=== PATIENT | male | born 1955 | race Caucasian/White ===

== ENCOUNTER 2019-04-28 11:12 | Outpatient (CLI) | payer OTHER, SELFPAY ==
[2019-04-28 08:30] LABS: NT Pro B Type Natriuretic Pept 122 PG/ML (5-100)
[2019-04-28 14:14] LABS: Prostate Specific Antigen 0.4 ng/mL (< OR = 4.0)
== END 2019-04-28 11:13 | disposition home or self-care (01) ==
PROVIDERS: PCP Family Medicine; Visit Provider Family Medicine
DX: Z12.5 Encounter for screening for malignant neoplasm of prostate (principal)
CPT/HCPCS: 36415; 83880; 84153

== ENCOUNTER 2020-05-23 15:47 | Outpatient (CLI) | payer BC, SELFPAY ==
--- NOTE | ~2020-05-23 | US_ITS ---
US venous doppler LE RT DATE: 05/23/2020 16:31 INDICATION: Right leg swelling TECHNIQUE: Real-time and color flow imaging and Doppler analysis COMPARISON: None FINDINGS: The right greater saphenous vein is patent. There is spontaneous and phasic flow and normal augmentation and color flow signal of the right common femoral, popliteal and peroneal veins. There is partial compression of the proximal and mid right femoral artery and no compression of the p roximal tibial vein. IMPRESSION: Deep venous thrombosis of right femoral and proximal posterior tibial veins I attempted to contact [phone] with the report and was directed by voicemail to the on-call phys ician at [phone]. However, to fully close to this phone number and reached a recording the indic ated indicated this phone number was no longer in service. I called the histotechnologist supervisor who performed the procedure at [facility] on 07/21/2020 at 1638 hours and suggested the patient should be sent to the emergency room if a referring physician o r physician family medicine physician assistant could not be contacted. Reviewed, dictated and finalized at [facility]. Reviewed, dictated and finalized at location B. CONTROL SUPERVISOR IMPRESSION: Deep venous thrombosis of right femoral and proximal posterior tibi al veins I attempted to contact [phone] with the report and was directed by voicema il to the on-call physician at [phone]. However, to fully close to this ph one number and reached a recording the indicated indicated this phone number wa s no longer in service. I called the histotechnologist supervisor who performed the procedure at [facility] on 07/21/2020 at 1638 hours and suggested the patient should be sent to [facility] emergency room if a referring physician or physician family medicine physician assistant could not be contacted.
== END 2020-05-23 15:48 | disposition home or self-care (01) ==
LOC: ANHIMG 15:49
PROVIDERS: PCP Physician Assistant; Visit Provider Physician Assistant
DX: M79.89 Other specified soft tissue disorders (principal); I82.411 Acute embolism and thrombosis of right femoral vein; I82.441 Acute embolism and thrombosis of right tibial vein
CPT/HCPCS: 93971

== ENCOUNTER 2020-06-26 14:04 | Observation (INO) | payer BC, SELFPAY ==
[2020-06-26] VITALS (29 sets, daily range): BP systolic 119–156; BP diastolic 48–79; PULSE 66–96; RESP 12–24; TEMP 35.9–36.7; O2SAT 86–100; BMI 24.1
--- NOTE | ~2020-06-26 | XR_ITS ---
XR chest 2V DATE: 06/26/2020 16:08 INDICATION: Dyspnea on exertion. Hypertension. Elevated troponin. TECHNIQUE: PA and lateral views COMPARISON: 09/22/2005 portable AP chest FINDINGS: Normal heart size. No hilar or mediastinal enlargement. No pulmonary infiltrate or consolid ation, pleural effusion or pulmonary vascular congestion or pneumothorax is detected. There is degene rative spurring of the thoracic spine. IMPRESSION: No active cardiopulmonary disease Reviewed, dictated and finalized at location B.
[2020-06-26 14:23] LABS: Basophils Absolute Auto 0.1 K/mm3 (0.0-0.1); Basophils Percent Auto 1.1 % (0.2-1.2); Eosinophils Absolute Auto 0.3 K/mm3 (0-0.3); Eosinophils Percent Auto 4.6 % (0-4.4); Hematocrit 22.5 % (42.0-52.0); Immature Granulocyte Absolute 0.02 K/mm3 (0.00-0.031); Immature Granulocyte Percent A 0.4 % (0-0.5); Lymphocytes Absolute Auto 0.75 K/mm3 (0.9-3.2); Lymphocytes Percent Auto 13.4 % (18.3-44.2); Mean Corpuscular HGB Conc 26.7 g/dl (32-36); Mean Corpuscular Hemoglobin 18.9 pg (26-34); Mean Platelet Volume 10.6 fl (7.4-10.4); Monocytes Absolute Auto 0.5 K/mm3 (0.1-0.6); Monocytes Percent Auto 8.2 % (2.6-8.5); Neutrophils Absolute Auto 4.1 K/mm3 (1.3-6.7); Neutrophils Percent Auto 72.3 % (45.5-73.1); Platelet Count Result 250 k/mm3 (150-375); Red Blood Count 3.17 M/mm3 (4.6-6.20); Red Cell Distribution Width 17.5 % (11.5-14.5); White Blood Count 5.6 K/mm3 (4.5-10.0)
[2020-06-26 14:29] LABS: Ovalocytes 2+ (NORMAL); Tear Drop Cells 2+ (NORMAL)
[2020-06-26 14:30] LABS: Hypochromasia 2+ (NORMAL); Platelet Estimate Adequate (Adequate); Polychromasia 1+ (NORMAL)
[2020-06-26 14:33] LABS: INR 1.2; Prothrombin Time 16.2 Seconds (11.1-14.7)
[2020-06-26 14:34] LABS: Partial Thromboplastin Time 29.9 SECONDS (22.3-36.8)
[2020-06-26 14:36] LABS: Alanine Aminotransferase 19 U/L (4-50); Albumin Level 4.1 g/dL (3.5-5.1); Alkaline Phosphatase 87 U/L (38-126); Anion Gap 8 mmol/L (8-16); Aspartate Amino Transferase 31 U/L (17-59); Bilirubin,Total 0.4 mg/dL (0.2-1.3); Blood Urea Nitrogen 23 mg/dL (9-20); Calcium 9.1 mg/dL (8.4-10.2); Carbon Dioxide 23 mmol/L (22-30); Chloride 105 mmol/L (98-107); Estimated CRCL calculation 70 ml/min; Estimated Glomerular Filt Rate > 60; Glucose 176 mg/dL (75-110); Potassium 4.2 mmol/L (3.4-5.0); Sodium 136 mmol/L (137-145)
[2020-06-26 14:52] LABS: Troponin I 0.063 ng/mL (0.000-0.034)
--- NOTE | 2020-06-26 15:11 | ED.RECABL ---
HPI - Recheck/Abnormal Lab/Rx General Chief Complaint: Recheck/Abnormal Lab/Rx Stated Complaint: low hemoglobin Time Seen by Provider: 06/26/20 15:10 Source: patient Mode of arrival: ambulatory Limitations: no limitations History of Present Illness HPI narrative: Patient is a 64-year-old male with a history of type 2 diabetes, recent cataract surgery, subsequent DVT taking Xarelto, who presents for evaluation of low hemoglobin level is found on outpatient laboratory testing. Patient states that he was diagnosed with a DVT at the end of May started Xarelto and there was noted to have a hemoglobin of 6.1 on outpatient lab testing. Today, patient is endorsing some lightheadedness with standing. No syncope. No palpitations. No fever or chills. He denies any dark or tarry stools. No chest pain. Patient denies any current shortness of breath. Related Data Home Medications Medication Instructions Recorded Confirmed dorzolamide-timolol 1 drp OPHTHALMIC (EYE) BID 02/08/19 05/23/20 melatonin mg 02/08/19 05/23/20 potassium chloride 02/08/19 05/23/20 dextroamphetamine-amphetamine ER 20 mg PO QAM 04/08/19 05/23/20 20 mg 24hr capsule,extend release empagliflozin 25 mg tablet 25 mg PO DAILY 04/08/19 05/23/20 fluticasone propionate 50 1 spray NASAL DAILY PRN 04/08/19 05/23/20 mcg/actuation nasal spray,suspension metoprolol succinate 25 mg 50 mg PO DAILY tablet 04/08/19 05/23/20 tablet,extended release 24 hr ascorbic acid (vitamin C) 500 mg mg PO 05/10/20 05/23/20 capsule diphenhydramine HCl 25 mg capsule 25 mg PO TID PRN 05/10/20 05/23/20 finasteride 5 mg tablet 5 mg PO DAILY 05/10/20 05/23/20 metformin 500 mg tablet,extended 1,000 mg PO DAILY tablet 05/10/20 05/23/20 release 24 hr multivitamin 1 tablet PO DAILY 05/10/20 05/23/20 omega-3 acid ethyl esters 1 gram 1 cap PO DAILY 05/10/20 05/23/20 capsule turmeric 400 mg capsule mg PO 05/10/20 05/23/20 Allergies Allergy/AdvReac Type Severity Reaction Status Date / Time gluten Allergy Unknown unk Verified 05/23/20 14:52 Review of Systems Review of Systems: Narrative: CONSTITUTIONAL: Denies fever, chills, or sweats. EYES: Denies visual changes, reports improved left eye pain since cataract surgery and using his drops ENT: Denies rhinorrhea, congestion, sore throat, or otalgia. CARDIOVASCULAR: Denies chest pain, palpitations, or edema. RESPIRATORY: Denies cough or dyspnea. GASTROINTESTINAL: Denies abdominal pain, nausea, vomiting, or diarrhea. Denies dark or tarry stools. GENITOURINARY: Denies dysuria or hematuria. SKIN: Denies rash or itching. MUSCULOSKELETAL: Denies back pain, joint pain, or myalgia. NEUROLOGIC: Denies headache, numbness, or weakness. Reports mild lightheadedness with standing. [facility] Past Medical History Medical History (Updated 06/26/20 @ 15:34 by Rachael Mederos MD) ADHD BPH associated with nocturia CAD (coronary artery disease) Glaucoma Hyperlipidemia Hypertension Itchy skin Osteoarthritis Right leg DVT Right leg swelling Type 2 diabetes mellitus Surgical History Surgical History (Updated 06/26/20 @ 15:34 by Rachael Mederos MD) History of cataract surgery History of heart artery stent Family History Family History Other Family history of coronary artery disease Social History Social History Smoking status: Former smoker (Quit 1978) Second hand tobacco smoke exposure: No Smoking end date: 04/06/79 Alcohol intake: current Substance use: never Substance use type: does not use and prescription drug Other substance usage details: adderall Gender identity (if verbalized by the patient): Male Exam Narrative: Exam Narrative: GENERAL: Awake, alert, conversant HEAD: Normocephalic, atraumatic. EYES: PERRLA and EOMI. ENT: Nares clear, no rhinorrhea or epistaxis. Mucous membranes moist.
--- NOTE | 2020-06-26 15:35 | ECG_ITS ---
Measurements Intervals [place] Rate: 68 P: 24 AL: 217 QRS: 14 QRSD: 105 T: 38 QT: 405 QTc: 432 Interpretive Statements SINUS RHYTHM WITH FIRST DEGREE AV BLOCK ABNORMAL ECG Electronically Signed On 06-26-2020 16:31:32 CDT by Jitendra Mitchell D.O.
[2020-06-26 16:41] LABS: Transferrin 396 mg/dL (206-381)
[2020-06-26] MEDS: SODIUM CHLORIDE 0.9% IV 250 ML 30 ML IV CONT (17:00)
[2020-06-26 17:33] LABS: Iron 17 ug/dL (49-181)
[2020-06-26 17:43] LABS: Folic Acid > 20.0 ng/mL (2.76->20); Percent Iron Saturation 3 % (20-50)
[2020-06-26 18:10] LABS: Ferritin 3.86 ng/mL (11.1-264)
[2020-06-26 19:19] LABS: Troponin I 0.088 ng/mL (0.000-0.034)
--- NOTE | 2020-06-26 21:19 | ADMGEN ---
This patient, Lamin Peña, was admitted to IMU Room 232-01 at 2105. Patient/family oriented to hospital policies and general routines including ID bracelet, bed and alarms, visiting hours, pain management, procedures, bathroom and other care routines, personal items, smoking policy, room service/diet, and visiting hours. Information on how to activate the Rapid Response Team has been discussed. Patient/Family are encouraged to report perceived risks to care and to ask questions if they do not understand what they are told or what they should do.
[2020-06-26 21:20] LABS: Hematocrit 25.2 % (42.0-52.0)
[2020-06-26 21:30] LABS: Hemoglobin 6.8 g/dL (14.0-18.0)
[2020-06-26 21:49] LABS: Troponin I 0.098 ng/mL (0.000-0.034)
--- NOTE | 2020-06-26 22:20 | PM.IMHP ---
H&P: HPI History of Present Illness Date/Time: 06/26/20 22:20 Chief Complaint: Low blood counts. Narrative: This is a pleasant 64-year-old diabetic male with known history of recurrent right lower extremity DVT currently on Xarelto therapy, hypertension, coronary artery disease status post stent to RCA, and glaucoma who presented to the hospital after he was found to have a low hemoglobin on routine outpatient lab testing. The patient has been on Xarelto therapy since the end of May after he was found to have a recurrent right lower extremity DVT. He has noticed he has had increased exertional dyspnea and increased fatigue over the past 2 weeks. He denies any dizziness, chest pain, or passing out. He also denies any nausea, vomiting, black tarry stools, or over rectal bleeding. He denies any past history of GI bleeding. Patient was evaluated emergency room today and found to have a low H&H of 6.0/22.5. Patient was transfused packed red blood cells and gastroenterology was consulted by ER provider. On my encounter with the patient tonight he has no complaints and is resting comfortably in bed. Review of Systems Review of Systems: All systems reviewed & are unremarkable except as noted in HPI and below PMFSH Past Medical History Medical History (Updated 06/26/20 @ 22:31 by Mikey Auguste MD) ADHD BPH associated with nocturia CAD (coronary artery disease) Glaucoma Hyperlipidemia Hypertension Itchy skin Osteoarthritis Right leg DVT Right leg swelling Type 2 diabetes mellitus Surgical History Surgical History History of cataract surgery History of heart artery stent Family History Family History Other Family history of coronary artery disease Social History Social History Smoking status: Former smoker Second hand tobacco smoke exposure: No Alcohol intake: never Substance use: never Substance use type: does not use Other substance usage details: adderall Gender identity (if verbalized by the patient): Male Spiritual care concerns: No Meds Home Medications and Allergies Home Medications Medication Instructions Recorded Confirmed Type dorzolamide-timolol 1 drp OPHTHALMIC (EYE) BID 02/08/19 06/26/20 History glimepiride 2 mg PO DAILY #30 tablet 02/08/19 06/26/20 Rx melatonin 5 mg PO HS 02/08/19 06/26/20 History dextroamphetamine-amphetamine ER 20 mg PO QAM 04/08/19 06/26/20 History 20 mg 24hr capsule,extend release fluticasone propionate 50 1 spray NASAL DAILY PRN 04/08/19 06/26/20 History mcg/actuation nasal spray,suspension atorvastatin 20 mg tablet 20 mg PO DAILY #90 tablet 05/10/20 06/26/20 Rx diphenhydramine HCl 25 mg capsule 25 mg PO TID PRN 05/10/20 06/26/20 History finasteride 5 mg tablet 5 mg PO DAILY 05/10/20 06/26/20 History irbesartan 150 mg tablet 150 mg PO DAILY #90 tablet 05/10/20 06/26/20 Rx metformin 500 mg tablet,extended 1,000 mg PO DAILY tablet 05/10/20 06/26/20 History release 24 hr multivitamin 1 tablet PO DAILY 05/10/20 06/26/20 History omega-3 acid ethyl esters 1 gram 1 cap PO DAILY 05/10/20 06/26/20 History capsule turmeric 400 mg capsule 400 mg PO DAILY 05/10/20 06/26/20 History sildenafil 100 mg tablet 100 mg PO DAILY PRN #20 tablet 05/14/20 06/26/20 Rx tizanidine 2 mg tablet 2 mg PO TID PRN #270 tablet 05/14/20 06/26/20 Rx clindamycin phosphate 2 applic TOPICAL BID 06/26/20 06/26/20 History gabapentin 300 mg PO TID 06/26/20 06/26/20 History levocetirizine 5 mg PO DAILY 06/26/20 06/26/20 History rivaroxaban [Xarelto] 20 mg PO DAILY 06/26/20 06/26/20 History Allergies Allergy/AdvReac Type Severity Reaction Status Date / Time gluten Allergy Unknown unk Verified 05/23/20 14:52 Vital Signs Vital Signs - 24 hr 06/26/20 14:08 06/26/20 15:43 06/26/20 15:45 Temperature 35.
[2020-06-26] MEDS: TUBING, BLOOD PLUM PUMP TUBING 1 EACH XX (23:20)
[2020-06-27] VITALS (14 sets, daily range): BP systolic 115–126; BP diastolic 50–73; PULSE 62–98; RESP 16–20; TEMP 35.9–37.3; O2SAT 96–100
[2020-06-27 04:33] LABS: Basophils Absolute Auto 0.1 K/mm3 (0.0-0.1); Basophils Percent Auto 1.4 % (0.2-1.2); Eosinophils Absolute Auto 0.3 K/mm3 (0-0.3); Eosinophils Percent Auto 5.6 % (0-4.4); Hematocrit 25.3 % (42.0-52.0); Hemoglobin 7.1 g/dL (14.0-18.0); Immature Granulocyte Absolute 0.03 K/mm3 (0.00-0.031); Immature Granulocyte Percent A 0.5 % (0-0.5); Lymphocytes Absolute Auto 0.83 K/mm3 (0.9-3.2); Mean Corpuscular HGB Conc 28.1 g/dl (32-36); Mean Corpuscular Hemoglobin 20.1 pg (26-34); Mean Corpuscular Volume 71.7 fl (80-100); Mean Platelet Volume 9.7 fl (7.4-10.4); Monocytes Absolute Auto 0.5 K/mm3 (0.1-0.6); Monocytes Percent Auto 9.2 % (2.6-8.5); Neutrophils Absolute Auto 3.8 K/mm3 (1.3-6.7); Neutrophils Percent Auto 68.3 % (45.5-73.1); Platelet Count Result 190 k/mm3 (150-375); Red Blood Count 3.53 M/mm3 (4.6-6.20); Red Cell Distribution Width 18.3 % (11.5-14.5); White Blood Count 5.5 K/mm3 (4.5-10.0)
[2020-06-27 04:46] LABS: Anion Gap 5 mmol/L (8-16); Blood Urea Nitrogen 19 mg/dL (9-20); Calcium 8.7 mg/dL (8.4-10.2); Carbon Dioxide 26 mmol/L (22-30); Chloride 109 mmol/L (98-107); Estimated CRCL calculation 78 ml/min; Estimated Glomerular Filt Rate > 60; Glucose 88 mg/dL (75-110); Sodium 140 mmol/L (137-145)
[2020-06-27 05:01] LABS: Large Platelets Present; Platelet Estimate Adequate (Adequate)
[2020-06-27 05:02] LABS: Hypochromasia 1+ (NORMAL); Ovalocytes 2+ (NORMAL); Tear Drop Cells 1+ (NORMAL); Troponin I 0.082 ng/mL (0.000-0.034)
[2020-06-27 05:03] LABS: Polychromasia 1+ (NORMAL)
[2020-06-27 08:51] LABS: Glucose Point of Care 113 (65-105)
[2020-06-27 08:58] LABS: Hematocrit 26.4 % (42.0-52.0); Hemoglobin 7.3 g/dL (14.0-18.0)
[2020-06-27 10:56] LABS: Glucose Point of Care 107 (65-105)
[2020-06-27] MEDS: ATORVASTATIN 20 MG TABLET PO (11:28)
[2020-06-27] MEDS: IRBESARTAN 150 MG TABLET PO (11:29)
[2020-06-27] MEDS: GABAPENTIN 300 MG CAPSULE PO ×3 (11:29→17:14)
[2020-06-27] MEDS: FINASTERIDE 5 MG TABLET PO (11:29)
[2020-06-27] MEDS: LORATADINE 10 MG TABLET 5 MG PO (11:29)
[2020-06-27 13:01] LABS: IFOB Positive Control Positive; Immunochemical Fecal Occult Bl Positive (N)
[2020-06-27 13:05] LABS: Glucose Point of Care 219 (65-105)
--- NOTE | 2020-06-27 13:36 | PM.IMPN ---
Progress Note: A&P Assessment and Plan (1) Symptomatic anemia: Code(s): D64.9 - Anemia, unspecified Status: Acute Assessment and Plan: Patient has been admitted to IMU. Gastroenterology has been consulted. Continue GI recommendations. (2) Elevated troponin: Code(s): R77.8 - Other specified abnormalities of plasma proteins Status: Acute Assessment and Plan: Rule out ACS versus troponin leak from cardiac strain. (3) Hyperlipidemia: Qualifiers: Hyperlipidemia type: mixed hyperlipidemia Qualified Code(s): E78.2 - Mixed hyperlipidemia Code(s): E78.5 - Hyperlipidemia, unspecified Status: Chronic Assessment and Plan: Continue atorvastatin. (4) Type 2 diabetes mellitus: Qualifiers: Diabetes mellitus terminal system operator insulin use: without senior care use Diabetes mellitus complication status: with hyperglycemia Qualified Code(s): E11.65 - Type 2 diabetes mellitus with hyperglycemia Code(s): E11.9 - Type 2 diabetes mellitus without complications Status: Chronic Assessment and Plan: Accu-Cheks, sliding scale insulin coverage, hypoglycemia protocol. Resume oral hypoglycemic agents when the patient is eating again. 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 (6) CAD (coronary artery disease): Qualifiers: Coronary Disease-Associated Artery/Lesion type: [place] artery [place] vs. transplanted heart: [place] heart Associated angina: without angina Qualified Code(s): I25.10 - Atherosclerotic heart disease of [place] coronary artery without angina pectoris Code(s): I25.10 - Atherosclerotic heart disease of [place] coronary artery without angina pectoris Status: Chronic Assessment and Plan: Stable. (7) Right leg DVT: Qualifiers: Affected thrombotic vein of extremity: femoral Chronicity: acute Qualified Code(s): I82.411 - Acute embolism and thrombosis of right femoral vein Code(s): I82.401 - Acute embolism and thrombosis of unspecified deep veins of right lower extremity Status: Acute Assessment and Plan: Xarelto on hold (8) Hypertension: Qualifiers: Hypertension type: unspecified Qualified Code(s): I10 - Essential (primary) hypertension Code(s): I10 - Essential (primary) hypertension Status: Chronic Assessment and Plan: Stable. Subjective Date/time seen: 06/27/20 13:36 Interval history: 64-year-old diabetic male with known history of recurrent right lower extremity DVT currently on Xarelto therapy, hypertension, coronary artery disease status post stent to RCA, and glaucoma who presented to the hospital after he was found to have a low hemoglobin on routine outpatient lab testing. Pt states he has had chronic back itching. I will consult GI Review of Systems Review of Systems: All systems reviewed & are unremarkable except as noted in HPI and below Exam Const: General: cooperative and healthy appearing; No in distress Nutritional Appearance: overweight Orientation/consciousness: oriented to person HENMT: Head: normal to inspection Resp: Effort & Inspection: no respiratory distress Auscultation: no rhonchi and no wheezes Cardio: Rate: regular rate Rhythm: regular rhythm GI: Inspection: normal to inspection GI Palp: No abdominal tenderness, No Guarding due to palpation present (GI) and No Hepatomegaly present Auscultation: normal bowel sounds Neuro: General: oriented to person Objective Data Vital Signs Vital Signs: Vital Signs - 24 hr 06/26/20 14:08 06/26/20 15:43 06/26/20 15:45 Temperature
[2020-06-27] MEDS: INSULIN ASPART (*BKC) 100 UNITS/ML SUB-Q (14:17)
--- NOTE | 2020-06-27 16:09 | WPDGICN ---
Assessment and Plan Assessment and plan (1) Symptomatic anemia: Code(s): D64.9 - Anemia, unspecified Status: Acute Assessment and Plan: will proceed with egd and colonoscopy to check for source of blood loss in setting of xarelto that was started few weeks ago consider also small bowel bx to check for celiac disease (will get also serology) (2) Right leg DVT: Qualifiers: Affected thrombotic vein of extremity: femoral Chronicity: acute Qualified Code(s): I82.411 - Acute embolism and thrombosis of right femoral vein Code(s): I82.401 - Acute embolism and thrombosis of unspecified deep veins of right lower extremity Status: Acute Assessment and Plan: he was started on xarelto (3) CAD (coronary artery disease): Qualifiers: Coronary Disease-Associated Artery/Lesion type: [place] artery [place] vs. transplanted heart: [place] heart Associated angina: without angina Qualified Code(s): I25.10 - Atherosclerotic heart disease of [place] coronary artery without angina pectoris Code(s): I25.10 - Atherosclerotic heart disease of [place] coronary artery without angina pectoris Status: Chronic Assessment and Plan: history of stents few years ago (4) Chronic anticoagulation: Code(s): Z79.01 - [facility] (current) use of anticoagulants Status: Acute Assessment and Plan: xarelto on hold for now (5) Elevated troponin: Code(s): R77.8 - Other specified abnormalities of plasma proteins Status: Acute Assessment and Plan: mild elevated, denies chest pain, probably from symptomatic anemia by primary team (6) Hypertension: Qualifiers: Hypertension type: unspecified Qualified Code(s): I10 - Essential (primary) hypertension Code(s): I10 - Essential (primary) hypertension Status: Chronic (7) Type 2 diabetes mellitus: Qualifiers: Diabetes mellitus superintendent terminal insulin use: without superintendent terminal use Diabetes mellitus complication status: with hyperglycemia Qualified Code(s): E11.65 - Type 2 diabetes mellitus with hyperglycemia Code(s): E11.9 - Type 2 diabetes mellitus without complications Status: Chronic (8) Occult blood positive stool: Code(s): R19.5 - Other fecal abnormalities Status: Acute Assessment and Plan: stool was positive, scopes tomorrow GI Consult Note Consult date/time: 06/27/20 16:09 Reason for consult: symptomatic anemia HPI: Lamin Peña is a 64 year old male with history of recurrent right lower extremity DVT on 05/2020 on Xarelto since then (previous DVT 2013), hypertension, coronary artery disease status post stent to RCA, and recent glaucoma surgery who starting having pruritus in his back/arm for over a year, he has seen cartoonist special effects, electrotyper and finally reumathologist who finally ordered blood work work that showed microcytic anemia, hb 6 and advised to come to ER. He noted more fatigue than usual for last 2 weeks and increased exertional dyspnea. Also last 2 months with more dyspepsia, burning sensation epigastric and has been using pepcid with tums. He had egd and colonoscopy [place] [address] [place] because diarrhea (eventually diarrhea resolved but after avoiding gluten, never diagnosed with celiac though). No overt gib but last BM with hard stool and streak of blood. He received blood transfusion and feeling better. Mother had colon cancer and siblings with throat cancer. Review of Systems Constitutional: Constitutional: Denies chills and Reports fatigue Eyes: Eyes: Reports no additional eye complaints ENT: Reports system reviewed and no additional complaints, except as documented Cardiovascular: Cardiovascular: Reports no additional cardiovascular complaints Respiratory: Respiratory: Reports dyspnea on exertion Gastrointestinal: Gastrointestinal: Denies abdominal pain and Denies nausea Genitourinary: Genitourinary: Denies dysuria Muscul
[2020-06-27] MEDS: BISACODYL 5 MG TABLET EC 20 MG PO (17:12)
[2020-06-27] MEDS: polyethylene glycoL 3350 238 GM BOTTLE PO (17:13)
[2020-06-27 17:38] LABS: Glucose Point of Care 168 (65-105)
--- NOTE | 2020-06-27 18:27 | PC.NURSE ---
This patient, Lamin Peña, was transferred to [facility] on 06/27/20 at 1827. Personal belongings sent with patient. Report given to ALYSSA Owen. Appropriate documentation sent with patient.
--- NOTE | 2020-06-27 18:42 | PC.NURSE ---
This patient, Lamin Peña, was received from [IMU] on 06/27/20 at 1830. Patient/family oriented to unit policies and routines
[2020-06-27 21:32] LABS: Glucose Point of Care 159 (65-105)
[2020-06-28 00:23] LABS: Glucose Point of Care 118 (65-105)
[2020-06-28] MEDS: MAGNESIUM CITRATE 300 ML BTL PO (04:53)
[2020-06-28 05:55] VITALS: BP 123/71; PULSE 77; RESP 20; TEMP 36.3; O2SAT 99
[2020-06-28 06:27] LABS: Hematocrit 29.4 % (42.0-52.0); Hemoglobin 8.1 g/dL (14.0-18.0); Mean Corpuscular HGB Conc 27.6 g/dl (32-36); Mean Corpuscular Hemoglobin 19.4 pg (26-34); Mean Corpuscular Volume 70.5 fl (80-100); Mean Platelet Volume 10.3 fl (7.4-10.4); Platelet Count Result 242 k/mm3 (150-375); Red Blood Count 4.17 M/mm3 (4.6-6.20); Red Cell Distribution Width 18.6 % (11.5-14.5); White Blood Count 5.5 K/mm3 (4.5-10.0)
[2020-06-28 06:58] LABS: Alanine Aminotransferase 20 U/L (4-50); Albumin Level 4.3 g/dL (3.5-5.1); Alkaline Phosphatase 88 U/L (38-126); Anion Gap 10 mmol/L (8-16); Aspartate Amino Transferase 29 U/L (17-59); Bilirubin,Total 0.8 mg/dL (0.2-1.3); Blood Urea Nitrogen 16 mg/dL (9-20); Calcium 9.2 mg/dL (8.4-10.2); Carbon Dioxide 22 mmol/L (22-30); Chloride 107 mmol/L (98-107); Estimated CRCL calculation 70 ml/min; Estimated Glomerular Filt Rate > 60; Glucose 135 mg/dL (75-110); Potassium 3.9 mmol/L (3.4-5.0); Sodium 139 mmol/L (137-145)
[2020-06-28 07:06] LABS: Thyroid Stimulating Hormone 0.442 uIU/mL (0.465-4.680)
[2020-06-28 10:18] LABS: Glucose Point of Care 120 (65-105)
--- NOTE | 2020-06-28 11:06 | PC.NURSE ---
patient to GI lab per stretcher.
--- NOTE | 2020-06-28 11:06 | PC.NURSE ---
patient npo, did not get morning medications. plan to give medications upon return to the floor after procedure.
[2020-06-28 11:11] LABS: Glucose Point of Care 110 (65-105)
[2020-06-28] MEDS: LACTATED RINGERS 1,000 ML 150 ML IV CONT (11:20)
[2020-06-28 11:24] VITALS: BP 128/71; PULSE 65; RESP 16; TEMP 36.6; O2SAT 100
--- NOTE | 2020-06-28 12:06 | WPDANESEPPF ---
Anes - Initial Pre Proc Eval Procedure: Operation Date: 06/28/20 14:30 Proposed Procedures p Esophagogastroduodenoscopy - Frantz More MD Date/Time: 06/28/20 12:06 Surgeon: Madiha Britt MD Pre Op Diagnosis: Symptomatic anemia, elevated troponin Patient Data Age: 64 Gender: M Height: 6 ft Weight: 82.1 kg Last Vital Signs Temp 97.9 F 06/28/20 11:24 Pulse 65 06/28/20 11:24 Resp 16 06/28/20 11:24 BP 128/71 06/28/20 11:24 Pulse Ox 100 06/28/20 11:24 Allergies Allergy/AdvReac Type Severity Reaction Status Date / Time gluten Allergy Unknown unk Verified 06/28/20 11:21 Home Medications Medication Instructions Recorded Confirmed Type dorzolamide-timolol 1 drp OPHTHALMIC (EYE) BID 02/08/19 06/26/20 History glimepiride 2 mg PO DAILY #30 tablet 02/08/19 06/26/20 Rx melatonin 5 mg PO HS 02/08/19 06/26/20 History dextroamphetamine-amphetamine ER 20 mg PO QAM 04/08/19 06/26/20 History 20 mg 24hr capsule,extend release fluticasone propionate 50 1 spray NASAL DAILY PRN 04/08/19 06/26/20 History mcg/actuation nasal spray,suspension atorvastatin 20 mg tablet 20 mg PO DAILY #90 tablet 05/10/20 06/26/20 Rx diphenhydramine HCl 25 mg capsule 25 mg PO TID PRN 05/10/20 06/26/20 History finasteride 5 mg tablet 5 mg PO DAILY 05/10/20 06/26/20 History irbesartan 150 mg tablet 150 mg PO DAILY #90 tablet 05/10/20 06/26/20 Rx metformin 500 mg tablet,extended 1,000 mg PO DAILY tablet 05/10/20 06/26/20 History release 24 hr multivitamin 1 tablet PO DAILY 05/10/20 06/26/20 History omega-3 acid ethyl esters 1 gram 1 cap PO DAILY 05/10/20 06/26/20 History capsule turmeric 400 mg capsule 400 mg PO DAILY 05/10/20 06/26/20 History sildenafil 100 mg tablet 100 mg PO DAILY PRN #20 tablet 05/14/20 06/26/20 Rx tizanidine 2 mg tablet 2 mg PO TID PRN #270 tablet 05/14/20 06/26/20 Rx clindamycin phosphate 2 applic TOPICAL BID 06/26/20 06/26/20 History gabapentin 300 mg PO TID 06/26/20 06/26/20 History levocetirizine 5 mg PO DAILY 06/26/20 06/26/20 History rivaroxaban [Xarelto] 20 mg PO DAILY 06/26/20 06/26/20 History Laboratory Tests 06/27/20 06/27/20 06/27/20 12:18 12:24 16:30 WBC RBC Hgb Hct MCV MCH MCHC RDW Plt Count MPV Sodium Potassium Chloride Carbon Dioxide Anion Gap BUN Creatinine Estim Creat Clear Calc Estimated GFR Glucose POC Capillary Glucose 219 mg/dl H mg/dl 168 mg/dl H mg/dl (65-105) (65-105) Calcium Total Bilirubin AST ALT Alkaline Phosphatase Total Protein Albumin TSH Stl Occult Blood (IFOB) Positive H (N) 06/27/20 06/28/20 06/28/20 20:40 00:19 06:00 WBC RBC Hgb Hct MCV MCH MCHC RDW Plt Count MPV Sodium Potassium Chloride Carbon Dioxide Anion Gap BUN Creatinine Estim Creat Clear Calc Estimated GFR Glucose POC Capillary Glucose 159 mg/dl H mg/dl 118 mg/dl H mg/dl 120 mg/dl H mg/dl (65-105) (65-105) (65-105) Calcium Total Bilirubin AST ALT Alkaline Phosphatase Total Protein Albumin TSH Stl Occult Blood (IFOB) 06/28/20 06/28/20 06/28/20 06:05 06:05 06:05 WBC 5.5 K/mm3 K/mm3 (4.5-10.0) RBC 4.17 M/mm3 L M/mm3 (4.6-6.20) Hgb 8.1 g/dL L g/dL (14.0-18.0) Hct 29.4 % L % (42.0-52.0)
--- NOTE | 2020-06-28 12:08 | PM.IMPN ---
Progress Note: A&P Assessment and Plan (1) Symptomatic anemia: Code(s): D64.9 - Anemia, unspecified Status: Acute Assessment and Plan: Sp blood hb is 8 now. Gastroenterology has been consulted. Continue GI recommendations. (2) Elevated troponin: Code(s): R77.8 - Other specified abnormalities of plasma proteins Status: Acute Assessment and Plan: Rule out ACS versus troponin leak from cardiac strain. (3) Hyperlipidemia: Qualifiers: Hyperlipidemia type: mixed hyperlipidemia Qualified Code(s): E78.2 - Mixed hyperlipidemia Code(s): E78.5 - Hyperlipidemia, unspecified Status: Chronic Assessment and Plan: Continue atorvastatin. (4) Type 2 diabetes mellitus: Qualifiers: Diabetes mellitus long-term insulin use: without termite treater helper use Diabetes mellitus complication status: with hyperglycemia Qualified Code(s): E11.65 - Type 2 diabetes mellitus with hyperglycemia Code(s): E11.9 - Type 2 diabetes mellitus without complications Status: Chronic Assessment and Plan: Accu-Cheks, sliding scale insulin coverage, hypoglycemia protocol. Resume oral hypoglycemic agents when the patient is eating again. 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 (6) CAD (coronary artery disease): Qualifiers: Coronary Disease-Associated Artery/Lesion type: [place] artery [place] vs. transplanted heart: [place] heart Associated angina: without angina Qualified Code(s): I25.10 - Atherosclerotic heart disease of [place] coronary artery without angina pectoris Code(s): I25.10 - Atherosclerotic heart disease of [place] coronary artery without angina pectoris Status: Chronic Assessment and Plan: Stable. (7) Right leg DVT: Qualifiers: Affected thrombotic vein of extremity: femoral Chronicity: acute Qualified Code(s): I82.411 - Acute embolism and thrombosis of right femoral vein Code(s): I82.401 - Acute embolism and thrombosis of unspecified deep veins of right lower extremity Status: Acute Assessment and Plan: Xarelto on hold awaiting EGD and colonoscopy reports (8) Hypertension: Qualifiers: Hypertension type: unspecified Qualified Code(s): I10 - Essential (primary) hypertension Code(s): I10 - Essential (primary) hypertension Status: Chronic Assessment and Plan: Stable. Subjective Date/time seen: 06/28/20 12:08 Interval history: 64-year-old diabetic male with known history of recurrent right lower extremity DVT currently on Xarelto therapy, hypertension, coronary artery disease status post stent to RCA, and glaucoma who presented to the hospital after he was found to have a low hemoglobin on routine outpatient lab testing. Pt states he has had chronic back itching. Pt is going for EGD and colonscopy today history of colon cancer in the family, hb today is 8 Review of Systems Review of Systems: All systems reviewed & are unremarkable except as noted in HPI and below Exam Const: General: cooperative, healthy appearing, no acute distress, alert, awake and other (Pale appearing); No in distress Nutritional Appearance: well nourished and overweight Orientation/consciousness: oriented to person and patient oriented x3 HENMT: Head: normal to inspection General nose exam: Normal external nose present Face and sinus: normal facial exam Mouth: Yes Normal oral and palatal mucosa present and Yes oropharynx normal Eyes: Pupils: Equal, round and reactive pupils present EOM: EOMs intact bilaterally Neck: Neck: supple and no JVD Resp: Effo
[2020-06-28] MEDS: BENZOCAINE (*SP) 60 ML SPRAY CAN (HURRICAINE) 1 SPRAY MUCOUS MEM (12:25)
[2020-06-28 12:57] VITALS: BP 120/67; PULSE 70; RESP 29; O2SAT 100
[2020-06-28 13:07] VITALS: BP 108/63; PULSE 62; RESP 21; O2SAT 100
[2020-06-28 13:17] VITALS: BP 120/75; PULSE 60; RESP 20; O2SAT 100
[2020-06-28 13:32] LABS: Glucose Point of Care 105 (65-105)
--- NOTE | 2020-06-28 13:44 | PC.NURSE ---
patient returned to bed from GI lab.
[2020-06-28 14:00] VITALS: BP 138/82; PULSE 68; RESP 20; TEMP 36; O2SAT 100
[2020-06-28] MEDS: IRBESARTAN 150 MG TABLET PO (15:04)
[2020-06-28] MEDS: FINASTERIDE 5 MG TABLET PO (15:04)
[2020-06-28] MEDS: GABAPENTIN 300 MG CAPSULE PO (15:04)
[2020-06-28] MEDS: LORATADINE 10 MG TABLET 5 MG PO (15:05)
[2020-06-28] MEDS: ATORVASTATIN 20 MG TABLET PO (15:05)
--- NOTE | 2020-06-28 15:29 | PM.DS ---
DS: Admitting Diagnosis Admitting Diagnosis Admitting Diagnosis: LOW BLOOD COUNTS DS: Discharge Diagnosis Discharge Diagnosis (1) Symptomatic anemia: Code(s): D64.9 - Anemia, unspecified Status: Acute Assessment and Plan: Sp blood hb is 8 now. Gastroenterology has been consulted. Continue GI recommendations. (2) Elevated troponin: Code(s): R77.8 - Other specified abnormalities of plasma proteins Status: Acute Assessment and Plan: Rule out ACS versus troponin leak from cardiac strain. (3) Hyperlipidemia: Qualifiers: Hyperlipidemia type: mixed hyperlipidemia Qualified Code(s): E78.2 - Mixed hyperlipidemia Code(s): E78.5 - Hyperlipidemia, unspecified Status: Chronic Assessment and Plan: Continue atorvastatin. (4) Type 2 diabetes mellitus: Qualifiers: Diabetes mellitus complication status: with hyperglycemia Diabetes mellitus mcfp insulin use: without mcfp use Qualified Code(s): E11.65 - Type 2 diabetes mellitus with hyperglycemia Code(s): E11.9 - Type 2 diabetes mellitus without complications Status: Chronic Assessment and Plan: Accu-Cheks, sliding scale insulin coverage, hypoglycemia protocol. Resume oral hypoglycemic agents when the patient is eating again. 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 (6) CAD (coronary artery disease): Qualifiers: Associated angina: without angina Coronary Disease-Associated Artery/Lesion type: [place] artery [place] vs. transplanted heart: [place] heart Qualified Code(s): I25.10 - Atherosclerotic heart disease of [place] coronary artery without angina pectoris Code(s): I25.10 - Atherosclerotic heart disease of [place] coronary artery without angina pectoris Status: Chronic Assessment and Plan: Stable. (7) Right leg DVT: Qualifiers: Affected thrombotic vein of extremity: femoral Chronicity: acute Qualified Code(s): I82.411 - Acute embolism and thrombosis of right femoral vein Code(s): I82.401 - Acute embolism and thrombosis of unspecified deep veins of right lower extremity Status: Acute Assessment and Plan: Xarelto on hold awaiting EGD and colonoscopy reports (8) Hypertension: Qualifiers: Hypertension type: unspecified Qualified Code(s): I10 - Essential (primary) hypertension Code(s): I10 - Essential (primary) hypertension Status: Chronic Assessment and Plan: Stable. DS: Summary Hospital Course Hospital Course: 64-year-old diabetic male with known history of recurrent right lower extremity DVT currently on Xarelto therapy, hypertension, coronary artery disease status post stent to RCA, and glaucoma who presented to the hospital after he was found to have a low hemoglobin on routine outpatient lab testing. Pt states he has had chronic back itching. Pt is going for EGD and colonscopy today history of colon cancer in the family, hb today is 8. Time Spent with Patient Time attestation: Total time spent providing and/or coordinating discharge services:40 minutes on day of discharge Exam Const: General: cooperative, healthy appearing, alert and awake Resp: Effort & Inspection: normal respiratory effort and no respiratory distress Auscultation: clear to auscultation bilaterally, no rhonchi and no wheezes Cardio: Rate: regular rate Rhythm: regular rhythm Heart sounds: no murmurs GI: Inspection: normal to inspection Auscultation: normal bowel sounds Skin: General skin exam: normal color and no rashes or lesions noted Neuro: General: oriented to
== END 2020-06-28 16:56 | disposition home or self-care (01) ==
LOC: ANHED 17:36 → ANHIMU 19:33 → ANH3MEDSUR 06-27 18:17
PROVIDERS: Family Medicine; Internal Medicine Gastroenterology; Admitting Provider Family Medicine; Emergency Provider Emergency Medicine; PCP Physician Assistant; Visit Provider Family Medicine
PROC: 0DJ08ZZ Inspection of Upper Intestinal Tract, Via Natural or Artificial Opening Endoscopic (ICD-10-PCS; CPT 43235; principal; 2020-06-28 14:30)
DX: D64.9 Anemia, unspecified (principal); K29.50 Unspecified chronic gastritis without bleeding; K26.9 Duodenal ulcer, unspecified as acute or chronic, without hemorrhage or perforation; K57.30 Diverticulosis of large intestine without perforation or abscess without bleeding; K64.8 Other hemorrhoids; R77.8 Other specified abnormalities of plasma proteins; E78.5 Hyperlipidemia, unspecified; E11.9 Type 2 diabetes mellitus without complications; I25.10 Atherosclerotic heart disease of native coronary artery without angina pectoris; I82.411 Acute embolism and thrombosis of right femoral vein; I10 Essential (primary) hypertension; Z95.5 Presence of coronary angioplasty implant and graft; Z87.891 Personal history of nicotine dependence; Z79.01 Long term (current) use of anticoagulants; Z79.4 Long term (current) use of insulin
CPT/HCPCS: 43239; 45378; 36415; 36430; 71046; 80048; 80053; 82274; 82607; 82728; 82746; 82948; 83540; 83550; 84443; 84466; 84484; 85014; 85018; 85025; 85027; 85610; 85730; 86850; 86900; 86901; 86923; 88305; 93005; 99285; A9270; G0378; J1815; J2704; J7050; J7120; P9016

== ENCOUNTER 2020-07-11 07:46 | Outpatient (CLI) | payer BC, SELFPAY ==
[2020-07-11 08:02] LABS: Hematocrit 31.3 % (42.0-52.0); Hemoglobin 8.5 g/dL (14.0-18.0); Mean Corpuscular HGB Conc 27.2 g/dl (32-36); Mean Corpuscular Volume 73.6 fl (80-100); Mean Platelet Volume 9.7 fl (7.4-10.4); Platelet Count Result 218 k/mm3 (150-375); Red Blood Count 4.25 M/mm3 (4.6-6.20); Red Cell Distribution Width 20.3 % (11.5-14.5); White Blood Count 6.1 K/mm3 (4.5-10.0)
== END 2020-07-11 07:47 | disposition home or self-care (01) ==
PROVIDERS: PCP Physician Assistant; Visit Provider Family Medicine
DX: D64.9 Anemia, unspecified (principal)
CPT/HCPCS: 36415; 85027